=== PATIENT | female | born 1985 | race Caucasian/White ===

== ENCOUNTER 2016-12-06 12:59 | Emergency (ER) | payer SELFPAY ==
--- NOTE | 2016-12-06 13:17 | EDM.PDOC ---
ED HPI GENERAL MEDICAL PROBLEM - General Chief Complaint: Behavioral/Psych Stated Complaint: ANXIETY ATTACK Time Seen by Provider: 12/06/16 13:00 Source of Information: Reports: Patient History Limitations: Reports: No Limitations - History of Present Illness INITIAL COMMENTS - FREE TEXT/NARRATIVE: History of present illness: []Patient moved here from [place] recently and has been out of her occasions for one week. Not contact her primary care physician established locally. She states she is feeling her anxiety increasing. She is normally treated with Xanax half a milligram 3 times a day and she has a history of fibromyalgia and gets 120 tablets of tramadol a month and is also requesting this medication. Review of systems: As per history of present illness and below otherwise all systems reviewed and negative. Past medical history: As per history of present illness and as reviewed below otherwise noncontributory. Surgical history: As per history of present illness and as reviewed below otherwise noncontributory. Social history: No reported history of drug or alcohol abuse. Family history: As per history of present illness and as reviewed below otherwise noncontributory. Physical exam: General: Well developed, well nourished in NAD HEENT: Atraumatic, normocephalic, pupils reactive, negative for conjunctival pallor or scleral icterus, mucous membranes moist, throat clear, neck supple, nontender, trachea midline. Lungs: Clear to auscultation, breath sounds equal bilaterally, chest nontender. Heart: S1S2, regular, negative for clicks, rubs, or JVD. Abdomen: Soft, nondistended, nontender. Negative for masses or hepatosplenomegaly. Negative for costovertebral tenderness. Pelvis: Stable nontender. Genitourinary: Deferred. Rectal: Deferred. Extremities: Atraumatic, negative for cords or calf pain. Neurovascular unremarkable. Neuro: Awake, alert, oriented. Cranial nerves II through XII unremarkable. Cerebellum unremarkable. Motor and sensory unremarkable throughout. Exam nonfocal. Diagnostics: [] Therapeutics: [] Impression: []Med refill for Xanax 0.5 mg 3 times a day #12 and tramadol 50 mg 1 tablet 3 times a day #12 tablets with no refills Plan: []Follow-up with primary care physician next week for further medication refills. Definitive disposition and diagnosis as appropriate pending reevaluation and review of above. Generalized Pain Score (Numeric/FACES): 7 - Related Data Allergies Allergy/AdvReac Type Severity Reaction Status Date / Time Sulfa (Sulfonamide Allergy Swelling Verified 12/06/16 13:15 Antibiotics) Home Meds: Home Meds ALPRAZolam [Alprazolam] 0.5 mg PO TID PRN #12 tablet 12/06/16 [Rx] traMADol [Ultram] 50 mg PO Q8H PRN #12 tablet 12/06/16 [Rx] ED ROS GENERAL - Review of Systems Review Of Systems: See Below (see history of present illness) ED EXAM, GENERAL - Physical Exam Exam: See Below (See history of present illness) Course - Vital Signs Last Recorded V/S: Last Vital Signs Temp 36.7 C 12/06/16 13:10 Pulse 108 H 12/06/16 13:10 Resp 12 12/06/16 13:10 BP 137/77 12/06/16 13:10 Pulse Ox 98 12/06/16 13:10 Departure - Departure Time of Disposition: 13:29 Disposition: Home, Self-Care 01 Condition: Good Clinical Impression: Medication refill - Discharge Information Prescriptions: ALPRAZolam [Alprazolam] 0.5 mg PO TID PRN #12 tablet PRN Reason: Anxiety traMADol [Ultram] 50 mg PO Q8H PRN #12 tablet PRN Reason: Pain Referrals: PCP,None [Primary Care Provider] - Forms: ED Department Discharge Additional Instructions: The following information is given to patients seen in the emergency department who are being discharged to home. This information is to outline your options for follow-up care. We provide all patients seen in our emergency department with a follow-up referral. The need for follow-up, as well as the timing and circumstances, are variable depending upon the specifics of your emergency department visit. If you don't have a primary care physician on staff, we will provide you with a referral. We always advise you to contact your personal physician following an emergency department visit to inform them of the circumstance of the visit and for follow-up with them and/or the need for any referrals to a consulting specialist. The emergency department will also refer you to a specialist when appropriate. This referral assures that you have the opportunity for follow-up care with a specialist. All of these measure are taken in an effort to provide you with optimal care, which includes your follow-up. Under all circumstances we always encourage you to contact your private physician who remains a resource for coordinating your care. When calling for follow-up care, please make the office aware that this follow-up is from your recent emergency room visit. If for any reason you are refused follow-up, please contact the [facility] Emergency Department at and asked to speak to the emergency department charge nurse. Alprazolam 0.5 mg 3 times a day as needed 12 tablets without refills and tramadol 50 mg 1 tablet 3 times a day as needed tablets without refills filled one time. Patient is to follow-up in clinic in become established primary care physician for further refills [facility] [address] [place] [id number]
[2016-12-06 13:31] VITALS: BP 137/77
== END 2016-12-06 13:39 | disposition home or self-care (01) ==
LOC: MERGE 12:59 → MW.ED 12:59
DX: Z76.0 Encounter for issue of repeat prescription (principal); Z88.2 Allergy status to sulfonamides
CPT/HCPCS: 99282

== ENCOUNTER 2017-01-06 11:51 | Emergency (ER) | payer SELFPAY ==
[2017-01-06] MEDS ORDERED: Sodium Chloride 0.9% 2.5 ML Syringe FLUSH PRN (11:59)
[2017-01-06] MEDS ORDERED: LORazepam 2 MG/ML MDV IVPUSH ONE (11:59)
[2017-01-06] MEDS ORDERED: Sodium Chloride 0.9% 1,000 ML IV ONE (11:59)
[2017-01-06] MEDS ORDERED: Sodium Chloride 0.9% 10 ML Syringe FLUSH PRN (11:59)
[2017-01-06 12:03] VITALS: BP 160/98
--- NOTE | 2017-01-06 12:06 | EDM.PDOC ---
ED HPI GENERAL MEDICAL PROBLEM - General Chief Complaint: Chest Pain Stated Complaint: CHEST PAIN Time Seen by Provider: 01/06/17 11:53 Source of Information: Reports: Patient History Limitations: Reports: No Limitations - History of Present Illness INITIAL COMMENTS - FREE TEXT/NARRATIVE: History of present illness: []Patient take Clonopin chronically for anxiety but ran out of week ago. Yesterday she started feeling anxious with a lump or "dry spot" in her throat, chest pain, neck pain and palpitations. Patient states that this dry spot aches her tongue stick to the referring mouth and makes food difficult to swallow. Review of systems: As per history of present illness and below otherwise all systems reviewed and negative. Past medical history: As per history of present illness and as reviewed below otherwise noncontributory. Surgical history: As per history of present illness and as reviewed below otherwise noncontributory. Social history: No reported history of drug or alcohol abuse. Family history: As per history of present illness and as reviewed below otherwise noncontributory. Physical exam: General: Well developed, well nourished in NAD HEENT: Atraumatic, normocephalic, pupils reactive, negative for conjunctival pallor or scleral icterus, mucous membranes moist, throat clear no exudates or masses, neck supple, nontender, no adenopathy, trachea midline. No stridor Lungs: Clear to auscultation, breath sounds equal bilaterally, chest nontender. Heart: S1S2, regular, negative for clicks, rubs, or JVD. Abdomen: Soft, nondistended, nontender. Negative for masses or hepatosplenomegaly. Negative for costovertebral tenderness. Pelvis: Stable nontender. Genitourinary: Deferred. Rectal: Deferred. Extremities: Atraumatic, negative for cords or calf pain. Neurovascular unremarkable. Neuro: Awake, alert, oriented. Cranial nerves II through XII unremarkable. Cerebellum unremarkable. Motor and sensory unremarkable throughout. Exam nonfocal. Diagnostics: [] CBC chemistry, drug screen negative Therapeutics: []IV hydration and Ativan given with decrease of her heart rate and improvement in symptoms Impression: []Anxiety Plan: []Follow-up PMD return to ED if symptoms worsen Definitive disposition and diagnosis as appropriate pending reevaluation and review of above. 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), Other OB/BYN History: Cesearean section Musculoskeletal History: Reports: Fibromyalgia Psychiatric History: Reports: Anxiety - Infectious Disease History Infectious Disease History: Reports: Chicken Pox, Hepatitis C Social & Family History - Tobacco Use Smoking Status *Q: Current Every Day Smoker Years of Tobacco use: 8 Packs/Tins Daily: 1 - Caffeine Use Caffeine Use: Reports: None - Recreational Drug Use Recreational Drug Use: No ED ROS GENERAL - Review of Systems Review Of Systems: See Below (See history of present illness) ED EXAM, GENERAL - Physical Exam Exam: See Below (See history of present illness) Course - Vital Signs Last Recorded V/S: Last Vital Signs Temp 37.1 C 01/06/17 11:59 Pulse 128 H 01/06/17 11:59 Resp 16 01/06/17 11:59 BP 160/98 H 01/06/17 11:59 Pulse Ox 100 01/06/17 11:59 - Orders/Labs/Meds Orders: Active Orders 24 hr Category Date Time Status EKG 12 Lead [EKG Documentation Completion] [RC] STAT Care 01/06/17 12:41 Active Sodium Chloride 0.9% [Saline Flush] Med 01/06/17 11:59 Active 10 ml FLUSH ASDIRECTED PRN Sodium Chloride 0.9% [Saline Flush] Med 01/06/17 11:59 Active 2.5 ml FLUSH ASDIRECTED PRN Saline Lock Insert [OM.PC] Stat Oth 01/06/17 11:59 Ordered Medication Orders Sodium Chloride (Saline Flush) 10 ml FLUSH ASDIRECTED PRN PRN Reason: Keep Vein Open Last Admin: 01/06/17 12:11 Dose: 10 ml Sodium Chloride (Saline Flush) 2.5 ml FLUSH ASDIRECTED PRN PRN Reason: Keep Vein Open Last Admin: 01/06/17 12:14 Dose: 2.5 ml Labs: Laboratory Tests 01/06/17 01/06/17 01/06/17 Range/Units 12:10 12:10 12:24 WBC 7.65 (4.0-11.0) K/uL RBC 4.57 (4.30-5.90) M/uL Hgb 12.7 (12.0-16.0) g/dL Hct 38.5 (36.0-46.0) % MCV 84.2 (80.0-98.0) fL MCH 27.8 (27.0-32.0) pg MCHC 33.0 (31.0-37.0) g/dL RDW Std Deviation 46.5 (28.0-62.0) fl RDW Coeff of Pepito 15 (11.0-15.0) % Plt Count 306 (150-400) K/uL MPV 10.70 (7.40-12.00) fL Neut % (Auto) 56.2 (48.0-80.0) % Lymph % (Auto) 36.7 (16.0-40.0) % Burnet % (Auto) 6.0 (0.0-15.0) % Eos % (Auto) 0.7 (0.0-7.0) % Baso % (Auto) 0.4 (0.0-1.5) % Neut # (Auto) 4.3 (1.4-5.7) K/uL Lymph # (Auto) 2.8 H (0.6-2.4) K/uL Burnet # (Auto) 0.5 (0.0-0.8) K/uL Eos # (Auto) 0.1 (0.0-0.7) K/uL Baso # (Auto) 0.0 (0.0-0.1) K/uL Nucleated RBC % 0.0 /100WBC Nucleated RBCs # 0 K/uL Sodium 138 (136-146) mmol/L Potassium 3.7 (3.5-5.1) mmol/L Chloride 109 (98-110) mmol/L Carbon Dioxide 20 L (21-31) mmol/L BUN 16 (6.0-23.0) mg/dL Creatinine 0.9 (0.6-1.5) mg/dL Est Cr Clr Drug Dosing 88.07 mL/min Estimated GFR (MDRD) > 60.0 ml/min Glucose 106 (60-110) mg/dL Calcium 9.2 (8.8-10.8) mg/dL Total Bilirubin 0.5 (0.1-1.5) mg/dL AST 11 (5-40) IU/L ALT 8 (8-54) IU/L Alkaline Phosphatase 67 (40-150) Total Protein 7.7 (6.0-8.0) g/dL Albumin 4.5 (3.5-5.0) g/dL Globulin 3.2 (2.0-3.5) g/dL Albumin/Globulin Ratio 1.4 (1.3-2.8) Urine HCG, Qual NEGATIVE (NEGATIVE) Urine Opiates Screen (NEGATIVE) Ur Oxycodone Screen (NEGATIVE) Urine Methadone Screen (NEGATIVE) Ur Barbiturates Screen (NEGATIVE) Ur Phencyclidine Scrn (NEGATIVE) Ur Amphetamine Screen (NEGATIVE) U Methamphetamines Scrn (NEGATIVE) U Benzodiazepines Scrn (NEGATIVE) U Cocaine Metab Screen (NEGATIVE) U Marijuana (THC) Screen (NEGATIVE) 01/06/17 Range/Units 12:24 WBC (4.0-11.0) K/uL RBC (4.30-5.90) M/uL Hgb (12.0-16.0) g/dL Hct (36.0-46.0) % MCV (80.0-98.0) fL MCH (27.0-32.0) pg MCHC (31.0-37.0) g/dL RDW Std Deviation (28.0-62.0) fl RDW Coeff of Pepito (11.0-15.0) % Plt Count (150-400) K/uL MPV (7.40-12.00) fL Neut % (Auto) (48.0-80.0) % Lymph % (Auto) (16.0-40.0) % Burnet % (Auto) (0.0-15.0) % Eos % (Auto) (0.0-7.0) % Baso % (Auto) (0.0-1.5) % Neut # (Auto) (1.4-5.7) K/uL Lymph # (Auto) (0.6-2.4) K/uL Burnet # (Auto) (0.0-0.8) K/uL Eos # (Auto) (0.0-0.7) K/uL Baso # (Auto) (0.0-0.1) K/uL Nucleated RBC % /100WBC Nucleated RBCs # K/uL Sodium (136-146) mmol/L Potassium (3.5-5.1) mmol/L Chloride (98-110) mmol/L Carbon Dioxide (21-31) mmol/L BUN (6.0-23.0) mg/dL Creatinine (0.6-1.5) mg/dL Est Cr Clr Drug Dosing mL/min Estimated GFR (MDRD) ml/min Glucose (60-110) mg/dL Calcium (8.8-10.8) mg/dL Total Bilirubin (0.1-1.5) mg/dL AST (5-40) IU/L ALT (8-54) IU/L Alkaline Phosphatase (40-150) Total Protein (6.0-8.0) g/dL Albumin (3.5-5.0) g/dL Globulin (2.0-3.5) g/dL Albumin/Globulin Ratio (1.3-2.8) Urine HCG, Qual (NEGATIVE) Urine Opiates Screen NEGATIVE (NEGATIVE) Ur Oxycodone Screen NEGATIVE (NEGATIVE) Urine Methadone Screen NEGATIVE (NEGATIVE) Ur Barbiturates Screen NEGATIVE (NEGATIVE) Ur Phencyclidine Scrn NEGATIVE (NEGATIVE) Ur Amphetamine Screen NEGATIVE (NEGATIVE) U Methamphetamines Scrn NEGATIVE (NEGATIVE) U Benzodiazepines Scrn NEGATIVE (NEGATIVE) U Cocaine Metab Screen NEGATIVE (NEGATIVE) U Marijuana (THC) Screen NEGATIVE (NEGATIVE) Meds: Medications Generic Name Dose Route Start Last Admin Trade Name Freq PRN Reason Stop Dose Admin Sodium Chloride 10 ml 01/06/17 11:59 01/06/17 12:11 Saline Flush FLUSH 10 ml ASDIRECTED PRN Administration Keep Vein Open Sodium Chloride 2.5 ml 01/06/17 11:59 01/06/17 12:14 Saline Flush FLUSH 2.5 ml ASDIRECTED PRN Administration Keep Vein Open Discontinued Medications Generic Name Dose Route Start Last Admin Trade Name Freq PRN Reason Stop Dose Admin Sodium Chloride 1,000 mls @ 999 mls/hr 01/06/17 11:59 01/06/17 12:11 Normal Saline IV 01/06/17 12:59 999 mls/hr .Bolus ONE Administration Lorazepam 1 mg 01/06/17 11:59 01/06/17 12:11 Ativan IVPUSH 01/06/17 12:00 1 mg ONETIME ONE Administration Departure - Departure Time of Disposition: 13:17 Disposition: Home, Self-Care 01 Condition: Good Clinical Impression: Anxiety - Discharge Information Referrals: PCP,None [Primary Care Provider] - Forms: ED Department Discharge Additional Instructions: The following information is given to patients seen in the emergency department who are being discharged to home. This information is to outline your options for follow-up care. We provide all patients seen in our emergency department with a follow-up referral. The need for follow-up, as well as the timing and circumstances, are variable depending upon the specifics of your emergency department visit. If you don't have a primary care physician on staff, we will provide you with a referral. We always advise you to contact your personal physician following an emergency department visit to inform them of the circumstance of the visit and for follow-up with them and/or the need for any referrals to a consulting specialist. The emergency department will also refer you to a specialist when appropriate. This referral assures that you have the opportunity for follow-up care with a specialist. All of these measure are taken in an effort to provide you with optimal care, which includes your follow-up. Under all circumstances we always encourage you to contact your private physician who remains a resource for coordinating your care. When calling for follow-up care, please make the office aware that this follow-up is from your recent emergency room visit. If for any reason you are refused follow-up, please contact the [facility] Emergency Department at and asked to speak to the emergency department charge nurse. Follow-up with PMD [facility] [address] [place] [id number] - My Orders Last 24 Hours: My Active Orders 01/06/17 11:59 Sodium Chloride 0.9% [Saline Flush] 10 ml FLUSH ASDIRECTED PRN Sodium Chloride 0.9% [Saline Flush] 2.5 ml FLUSH ASDIRECTED PRN Saline Lock Insert [OM.PC] Stat 01/06/17 12:41 EKG 12 Lead [EKG Documentation Completion] [RC] STAT - Assessment/Plan Last 24 Hours: My Active Orders 01/06/17 11:59 Sodium Chloride 0.9% [Saline Flush] 10 ml FLUSH ASDIRECTED PRN Sodium Chloride 0.9% [Saline Flush] 2.5 ml FLUSH ASDIRECTED PRN Saline Lock Insert [OM.PC] Stat 01/06/17 12:41 EKG 12 Lead [EKG Documentation Completion] [RC] STAT
[2017-01-06 13:09] LABS: CHLORIDE,CL 109 mmol/L (98-110); SODIUM,NA 138 mmol/L (136-146)
== END 2017-01-06 13:44 | disposition home or self-care (01) ==
LOC: MW.ED 11:51
DX: F41.9 Anxiety disorder, unspecified (principal); F17.210 Nicotine dependence, cigarettes, uncomplicated; Z88.2 Allergy status to sulfonamides
CPT/HCPCS: 36415; 80053; 80305; 81025; 85025; 93005; 96361; 96374; 99285; J2060; J7040; 99283

== ENCOUNTER 2017-01-07 20:41 | Emergency (ER) | payer SELFPAY ==
[2017-01-07 20:55] VITALS: BP 134/77
--- NOTE | 2017-01-07 21:15 | EDM.PDOC ---
ED HPI GENERAL MEDICAL PROBLEM - General Chief Complaint: ENT Problem Stated Complaint: PAIN/ITCHY THROAT Time Seen by Provider: 01/07/17 20:44 Source of Information: Reports: Patient History Limitations: Reports: No Limitations - History of Present Illness INITIAL COMMENTS - FREE TEXT/NARRATIVE: Presents reporting a one month history of sore throat intermittent cough and bronchial burning. Denies fever, ear fullness, runny nose, breathing problems. She states that she did come to the ER last week but according to the patient she was told "they didn't have the equipment here to look at her throat". She was treated for anxiety. Otherwise she has not seen a provider. She currently complains of anxiety as well and states she has been under a lot of stress. She smokes 1-1-1/2 packs of cigarettes a day. 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 Musculoskeletal History: Reports: Fibromyalgia Psychiatric History: Reports: Anxiety - Infectious Disease History Infectious Disease History: Reports: Chicken Pox, Hepatitis C - Past Surgical History HEENT Surgical History: Reports: Adenoidectomy, Tonsillectomy Female Surgical History: Reports: Section Musculoskeletal Surgical History: Reports: None Social & Family History - Family History Family Medical History: Noncontributory - Tobacco Use Smoking Status *Q: Current Every Day Smoker Years of Tobacco use: 17 Packs/Tins Daily: 1 - Caffeine Use Caffeine Use: Reports: None - Recreational Drug Use Recreational Drug Use: No Drug Use in Last 12 Months: No ED ROS ENT - Review of Systems Review Of Systems: ROS reveals no pertinent complaints other than HPI. ED EXAM, ENT - Physical Exam Exam: See Below General Appearance: Alert, No Apparent Distress Ears: Normal External Exam, Normal TMs Nose: Normal Inspection Mouth/Throat: Normal Inspection, Pharyngeal Erythema (Mild). No: Tonsillar Exudates, Tonsillar Swelling Head: Atraumatic, Normocephalic Neck: Normal Inspection. No: Lymphadenopathy (L), Lymphadenopathy (R) Respiratory/Chest: No Respiratory Distress, Lungs Clear, Normal Breath Sounds Cardiovascular: Normal Peripheral Pulses, Regular Rate, Rhythm, No Murmur, Tachycardia Back: Normal Inspection Extremities: Normal Inspection Neurological: Alert, Oriented Psychiatric: Anxious Skin: Warm, Dry, Intact, Normal Color, No Rash Lymphatic: No Adenopathy Course - Vital Signs Last Recorded V/S: Last Vital Signs Temp 36.6 C 01/07/17 20:51 Pulse 123 H 01/07/17 20:51 Resp 18 01/07/17 20:51 BP 134/77 01/07/17 20:51 Pulse Ox 96 01/07/17 20:51 Departure - Departure Time of Disposition: 21:13 Disposition: Home, Self-Care 01 Condition: Good Clinical Impression: Bronchitis - Discharge Information Referrals: PCP,None [Primary Care Provider] - [facility] [Outside] [facility] [Outside] Additional Instructions: 1. Prednisone daily for next five days. Take your first 2 pills tonight. 2. Cheratussin with Codeine for cough--no driving or operating machinery 3. Please follow-up with primary care to address your anxiety 4. Stop smoking
== END 2017-01-07 21:23 | disposition home or self-care (01) ==
LOC: MW.ED 20:41
DX: J40 Bronchitis, not specified as acute or chronic (principal); F17.210 Nicotine dependence, cigarettes, uncomplicated; Z88.2 Allergy status to sulfonamides; Z79.899 Other long term (current) drug therapy
CPT/HCPCS: 99282

== ENCOUNTER 2017-03-14 13:00 | Emergency (ER) | payer OTHER ==
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
[2017-03-14] MEDS ORDERED: cefTRIAXone 2 GM in Premix Bag 1 BAG IV ONE (13:33)
[2017-03-14] MEDS ORDERED: Sodium Chloride 0.9% 1,000 ML IV ONE (13:33)
[2017-03-14 15:15] VITALS: BP 152/86
== END 2017-03-14 15:10 | disposition home or self-care (01) ==
LOC: MW.ED 13:00
DX: T74.11XA Adult physical abuse, confirmed, initial encounter (principal); S00.11XA Contusion of right eyelid and periocular area, initial encounter; L03.114 Cellulitis of left upper limb; L03.113 Cellulitis of right upper limb; L03.116 Cellulitis of left lower limb; L03.115 Cellulitis of right lower limb; F41.9 Anxiety disorder, unspecified; F17.210 Nicotine dependence, cigarettes, uncomplicated; Z79.899 Other long term (current) drug therapy; Z88.2 Allergy status to sulfonamides; Y07.01 Husband, perpetrator of maltreatment and neglect
CPT/HCPCS: 96365; 99282; J0696; J7040

== ENCOUNTER 2017-05-09 10:46 | Emergency (ER) | payer SELFPAY ==
[2017-05-09] MEDS ORDERED: Sodium Chloride 0.9% 10 ML Syringe FLUSH PRN (10:49)
[2017-05-09] MEDS ORDERED: Sodium Chloride 0.9% 2.5 ML Syringe FLUSH PRN (10:49)
[2017-05-09 12:55] LABS: CHLORIDE,CL 105 mmol/L (98-110); SODIUM,NA 135 mmol/L (136-146)
--- NOTE | 2017-05-09 13:00 | CR ---
EXAMINATION: Two-view chest (PA and Lateral views). HISTORY: Shortness of breath. FINDINGS: The trachea is midline. The cardiomediastinal silhouette is within normal limits. No pulmonary infilt rates, effusions or pneumothorax. Small calcified and ossified nodule projecting over the left suprah ilar region, likely a granuloma given the patient's age. Osseous structures appear unremarkable. IMPRESSION: No acute cardiopulmonary process.
--- NOTE | 2017-05-09 13:17 | EDM.PDOC ---
<Laura Kaye - Last Filed: 05/09/17 13:33> ED HPI GENERAL MEDICAL PROBLEM - General Chief Complaint: General Stated Complaint: COUGH Time Seen by Provider: 05/09/17 11:17 Source of Information: Reports: Patient History Limitations: Reports: No Limitations - History of Present Illness INITIAL COMMENTS - FREE TEXT/NARRATIVE: HISTORY AND PHYSICAL: []31-year-old female presenting with a cough for the last several months and quit smoking 2 weeks ago History of Present Illness: []Patient complains that her kidney hurt She states she is Dehydrated needs antibiotics Review of Systems: As per history of present illness and below otherwise all systems reviewed and negative. Past medical history: As per history of present illness and as reviewed below otherwise noncontributory. Surgical history: As per history of present illness and as reviewed below otherwise noncontributory. Social history: No reported history of drug or alcohol abuse. Family history: As per history of present illness and as reviewed below otherwise noncontributory. Physical exam: Alert and oriented female answering questions appropriately is not short of breath with examination. Skin is warm and dry. Flat affect good eye contact. HEENT: Atraumatic, normocehpalic, pupils reactive, negative for conjunctival pallor or scleral icterus, mucous membranes moist, throat clear, neck supple, nontender, trachea midline. Lungs: Crackles to right lower base on auscultation, breath sounds equal bilaterally, chest non tender. Heart: S1S2, regular, negative for clicks, rubs, or JVD. Abdomen: Soft, nondistended, nontender. Negative for masses or hepatossplenmegaly. Negative for costovertebral tenderness. Pelvis: Stable nontender. Genitourinary: Deferred. Rectal: Deferred Extremities: Atraumatic, negative for cords or calf pain. Neurovascular unremarkable. Neuro: Awake, alert, oriented. Cranial nerves II through XII unremarkable. Cerebellum unremarkable. Motor and sensory unremarkable throughout. Exam nonfocal. Discussed the viral results on her laboratory values Chest x-ray is negative for pneumonia/discussed granuloma present Urinalysis is negative for any infection. Patient continues to request antibiotic therapy which will not be beneficial to treating her virus. Patient is requesting a another provider see her for evaluation/ admission was kindly seen by Dr. Cabrera and reassured. Diagnostics: [CBC CMP UA] Therapeutics: [] Impression: [Viral syndrome] Plan: [] Discharge to home Medrol dose pack Miguel Silvestre Definitive disposition and diagnosis as appropriate pending reevaluation and review of above. Onset: Gradual Duration: Week(s):, Chronic Location: Reports: Chest Quality: Reports: Ache Severity: Moderate Improves with: Reports: None Worsens with: Reports: None Right Flank Pain Score (Numeric/FACES): 10 - Related Data Allergies Allergy/AdvReac Type Severity Reaction Status Date / Time Sulfa (Sulfonamide Allergy Hives Verified 05/09/17 11:14 Antibiotics) Home Meds: Home Meds traMADol [Ultram] 50 mg PO Q8H PRN #12 tablet 12/06/16 [Rx] clonazePAM [Klonopin] 0.5 mg PO BID 01/06/17 [History] Benzonatate [Tessalon Perle] 100 mg PO Q6HR #30 capsule 05/09/17 [Rx] Estazolam 05/09/17 [History] methylPREDNISolone [Medrol] 4 mg PO ASDIRECTED #1 dosepk 05/09/17 [Rx] Past Medical History - Past Health History Medical/Surgical History: Denies Medical/Surgical History HEENT History: Reports: None Genitourinary History: Reports: None 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 Musculoskeletal History: Reports: Fibromyalgia Psychiatric History: Reports: Addiction, Anxiety - Infectious Disease History Infectious Disease History: Reports: Chicken Pox, Hepatitis C - Past Surgical History HEENT Surgical History: Reports: Adenoidectomy, Tonsillectomy Female Surgical History: Reports: Section Musculoskeletal Surgical History: Reports: None Social & Family History - Family History Family Medical History: Noncontributory - Tobacco Use Smoking Status *Q: Current Every Day Smoker Years of Tobacco use: 20 Packs/Tins Daily: 2 - Caffeine Use Caffeine Use: Reports: None - Recreational Drug Use Recreational Drug Use: No Drug Use in Last 12 Months: No ED ROS GENERAL - Review of Systems Review Of Systems: ROS reveals no pertinent complaints other than HPI. ED EXAM, GENERAL - Physical Exam Exam: See Below (See dictation) Course - Vital Signs Last Recorded V/S: Last Vital Signs Temp 97.2 F 05/09/17 11:12 Pulse 54 L 02/23/18 11:12 Resp 18 05/09/17 11:12 BP 108/83 05/09/17 11:12 Pulse Ox 100 05/09/17 11:12 - Orders/Labs/Meds Orders: Active Orders 24 hr Category Date Time Status CULTURE URINE [RM] Stat Lab 05/09/17 11:16 Received Sodium Chloride 0.9% [Saline Flush] Med 05/09/17 10:49 Active 10 ml FLUSH ASDIRECTED PRN Sodium Chloride 0.9% [Saline Flush] Med 05/09/17 10:49 Active 2.5 ml FLUSH ASDIRECTED PRN Saline Lock Insert [OM.PC] Stat Oth 05/09/17 10:49 Ordered Medication Orders Sodium Chloride (Saline Flush) 10 ml FLUSH ASDIRECTED PRN PRN Reason: Keep Vein Open Sodium Chloride (Saline Flush) 2.5 ml FLUSH ASDIRECTED PRN PRN Reason: Keep Vein Open Labs: Laboratory Tests 05/09/17 05/09/17 05/09/17 Range/Units 11:16 11:58 11:58 WBC 5.05 (4.0-11.0) K/uL RBC 4.30 (4.30-5.90) M/uL Hgb 12.2 (12.0-16.0) g/dL Hct 37.2 (36.0-46.0) % MCV 86.5 (80.0-98.0) fL MCH 28.4 (27.0-32.0) pg MCHC 32.8 (31.0-37.0) g/dL RDW Std Deviation 45.6 (28.0-62.0) fl RDW Coeff of Pepito 15 (11.0-15.0) % Plt Count 210 (150-400) K/uL MPV 10.70 (7.40-12.00) fL Neut % (Auto) 40.6 L (48.0-80.0) % Lymph % (Auto) 42.8 H (16.0-40.0) % Dubois % (Auto) 7.5 (0.0-15.0) % Eos % (Auto) 8.7 H (0.0-7.0) % Baso % (Auto) 0.4 (0.0-1.5) % Neut # (Auto) 2.1 (1.4-5.7) K/uL Lymph # (Auto) 2.2 (0.6-2.4) K/uL Dubois # (Auto) 0.4 (0.0-0.8) K/uL Eos # (Auto) 0.4 (0.0-0.7) K/uL Baso # (Auto) 0.0 (0.0-0.1) K/uL Nucleated RBC % 0.0 /100WBC Nucleated RBCs # 0 K/uL Sodium 135 L (136-146) mmol/L Potassium 4.4 (3.5-5.1) mmol/L Chloride 105 (98-110) mmol/L Carbon Dioxide 21 (21-31) mmol/L BUN 15 (6.0-23.0) mg/dL Creatinine 0.7 (0.6-1.5) mg/dL Est Cr Clr Drug Dosing 121.69 mL/min Estimated GFR (MDRD) > 60.0 ml/min Glucose 75 (60-110) mg/dL Calcium 9.2 (8.8-10.8) mg/dL Total Bilirubin 0.2 (0.1-1.5) mg/dL AST 16 (5-40) IU/L ALT 14 (8-54) IU/L Alkaline Phosphatase 49 (40-150) Total Protein 6.2 (6.0-8.0) g/dL Albumin 3.9 (3.5-5.0) g/dL Globulin 2.3 (2.0-3.5) g/dL Albumin/Globulin Ratio 1.7 (1.3-2.8) Urine Color YELLOW Urine Appearance CLEAR Urine pH 6.0 (5.0-8.0) Ur Specific Powell <= 1.005 (1.001-1.035) Urine Protein NEGATIVE (NEGATIVE) mg/dL Urine Glucose (UA) NEGATIVE (NEGATIVE) mg/dL Urine Ketones NEGATIVE (NEGATIVE) mg/dL Urine Occult Blood NEGATIVE (NEGATIVE) Urine Nitrite NEGATIVE (NEGATIVE) Urine Bilirubin NEGATIVE (NEGATIVE) Urine Urobilinogen 0.2 (<2.0) EU/dL Ur Leukocyte Esterase NEGATIVE (NEGATIVE) Urine RBC 0-1 (0-2/HPF) Urine WBC 0-1 (0-5/HPF) Ur Epithelial Cells RARE (NONE-FEW) Urine Bacteria RARE (NEGATIVE) Meds: Medications Generic Name Dose Route Start Last Admin Trade Name Minhq PRN Reason Stop Dose Admin Sodium Chloride 10 ml 05/09/17 10:49 Saline Flush FLUSH ASDIRECTED PRN Keep Vein Open Sodium Chloride 2.5 ml 05/09/17 10:49 Saline Flush FLUSH ASDIRECTED PRN Keep Vein Open Departure - Departure Time of Disposition: 13:33 Disposition: Home, Self-Care 01 Condition: Good Clinical Impression: Viral syndrome - Discharge Information Prescriptions: Benzonatate [Tessalon Perle] 100 mg PO Q6HR #30 capsule methylPREDNISolone [Medrol] 4 mg PO ASDIRECTED #1 dosepk 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 This information is to outline your options for follow-up care. We provide all patients seen in our emergency department with a follow-up referral. The need for follow-up, as well as the timing and circumstances, are variable depending upon the specifics of your emergency department visit. If you don't have a primary care physician on staff, we will provide you with a referral. We always advise you to contact your personal physician following an emergency department visit to inform them of the circumstance of the visit and for follow-up with them and/or the need for any referrals to a consulting specialist. The emergency department will also refer you to a specialist when appropriate. This referral assures that you have the opportunity for followup care with a specialist. All of these measure are taken in an effort to provide you with optimal care, which includes your followup. Under all circumstances we always encourage you to contact your private physician who remains a resource for coordinating your care. When calling for followup care, please make the office aware that this follow-up is from your recent emergency room visit. If for any reason you are refused follow-up, please contact the [facility] emergency department at and asked to speak to the emergency department charge nurse. Your prescriptions have been sent to [facility] Copies of lab work have been given to you Follow up with your primary care provider <Lopez Sena - Last Filed: 05/09/17 13:39> ED HPI GENERAL MEDICAL PROBLEM - History of Present Illness INITIAL COMMENTS - FREE TEXT/NARRATIVE: I've seen and examined the patient and agree with the above Patient with long smoking history with persistent cough for one month after viral illness, she has not smoked in 2 weeks due to chronic cough HEENT grossly within normal limits Chest clear at apices height of bases equal expansion no excess or muscles or pursed lip breathing nontender chest wall CV regular rate and rhythm no murmur Abdomen benign Extremities full range of motion strength 5 out of 5 no edema PSYCHIATRIC NP alert nonfocal Lab as below Chest 2 views Assessment Chronic bronchitis Plan Patient somewhat mal content Z-Nick 250 mg no refill HFA laura has provided Tessalon Perles as well as Medrol dose pack Continue with smoking cessation
[2017-05-09 19:01] VITALS: BP 117/81
== END 2017-05-09 13:46 | disposition home or self-care (01) ==
LOC: MW.ED 10:46
DX: B34.9 Viral infection, unspecified (principal); F41.9 Anxiety disorder, unspecified; F17.210 Nicotine dependence, cigarettes, uncomplicated; Z88.2 Allergy status to sulfonamides
CPT/HCPCS: 36415; 71046; 71046-26; 80053; 81001; 85025; 87086; 99283

== ENCOUNTER 2017-07-24 03:17 | Observation (INO) | payer MEDICAID ==
[2017-07-24] MEDS ORDERED: Sodium Chloride 0.9% 10 ML Syringe FLUSH PRN (03:33)
[2017-07-24] MEDS ORDERED: Albuterol/Ipratropium 3.0-0.5 MG/3 ML Neb Soln NEB ONE (03:33)
[2017-07-24] MEDS ORDERED: Sodium Chloride 0.9% 1,000 ML IV ONE ×2 (03:33→05:34)
[2017-07-24] MEDS ORDERED: Ketorolac 30 MG/ML SDV IVPUSH ONE (03:33)
[2017-07-24] MEDS ORDERED: Sodium Chloride 0.9% 2.5 ML Syringe FLUSH PRN (03:33)
[2017-07-24] MEDS ORDERED: methylPREDNISolone Sodium Succinate 125 MG/2 ML SDV IVPUSH ONE (03:33)
--- NOTE | 2017-07-24 03:42 | EDM.PDOC ---
ED HPI GENERAL MEDICAL PROBLEM - General Chief Complaint: Respiratory Problem Stated Complaint: AMBULANCE Time Seen by Provider: 07/24/17 03:20 - History of Present Illness INITIAL COMMENTS - FREE TEXT/NARRATIVE: HISTORY AND PHYSICAL: History of present illness: The patient is a 32-year-old female who is a long-standing history of tobacco use and is currently smoking 1 pack a day but denies drug use or pulmonary history and presents with a recurrent episode of bronchitic cough occasionally productive of phlegm and discomfort with taking deep breaths that has been ongoing for the last several weeks but worse the last 1 week. According to the patient she has been coughing on and off for several months but it seems to have been worse the last one months. She says she has noted episodes of similar symptoms several times since moving to [place] and was seen here in our emergency department the end of April for similar. On that ER visit she complained of cough times several months. She was worked up and evaluated and discharged home and told to follow-up. She says she has seen her provider in the clinic but no further testing has been ordered and is unclear if that is actually happened. The patient denies any trauma and has no abdominal pain vomiting or diarrhea and denies as she has had a tubal ligation. The patient has not had a fever and has not had a runny nose or sore throat. She says that she has been eating and drinking normally. Please see below for more information Review of systems: As per history of present illness and below otherwise all systems reviewed and negative. Past medical history: As per history of present illness and as reviewed below otherwise noncontributory. Surgical history: As per history of present illness and as reviewed below otherwise noncontributory. Social history: No reported history of drug or alcohol abuse. Family history: As per history of present illness and as reviewed below otherwise noncontributory. Physical exam: General: Well-developed thin female who is nontoxic and has a harsh loose cough on my evaluation. Vital signs are noted by me. HEENT: Atraumatic, normocephalic, pupils reactive, negative for conjunctival pallor or scleral icterus, mucous membranes tacky, throat clear, neck supple, nontender, trachea midline. Lungs: Coarse breath sounds bilaterally with some rhonchi and occasional wheezing but no stridor or work of breathing,, breath sounds equal bilaterally, chest nontender. Heart: S1S2, regular rhythm and tachycardic rate of my evaluation, negative for clicks, rubs, or JVD. I cannot appreciate any discrete murmur on auscultation. Abdomen: Soft, nondistended, nontender. Negative for masses or hepatosplenomegaly. NABS Pelvis: Stable nontender. Genitourinary: Deferred. Rectal: Deferred. Extremities: Atraumatic, negative for cords or calf pain. Neurovascular unremarkable. No pedal edema or leg asymmetry Neuro: Awake, alert, oriented. Cranial nerves II through XII unremarkable. Cerebellum unremarkable. Motor and sensory unremarkable throughout. Exam nonfocal. Diagnostics: EKG chest x-ray CBC CMP lactic acid d-dimer troponin blood cultures 2 CTA of the chest was ordered due to positive d-dimer Therapeutics: IV O2 monitor IV fluids duo neb Solu-Medrol potassium orally Initially on my evaluation the patient denied drug use but after obtaining her drug screen I did discuss those results with her. She says she has been smoking drugs and she has a long-standing history of IV drug abuse but has not used on any regular basis but admits that she did use heroin approximately a week ago. She says she has not been able to refill her prescription for medications and she was having pain so she relapsed and used IV drugs. She is not very forthcoming with how often she is smoking drugs . She denies any lightheadedness dizziness palpitations or fevers at home and reiterates that she mostly came in for the persistent cough and the pleuritic chest pain. I do not appreciate any discrete murmur on my evaluation and she is currently finishing her first liter of fluids and still is tachycardic. If this persists I 'll plan on giving her second liter of IV fluids and will do blood cultures 2 and plan antibiotic therapy. 0550: Case was discussed with the hospitalist Dr. Mccullough who agrees to observation admission. I will give the patient antibiotics here in the ED, Rocephin and vancomycin and Zithromax. Testing results were discussed with the patient and care plan for admission was also discussed and she is agreeable. Impression: Multi focal pneumonia Definitive disposition and diagnosis as appropriate pending reevaluation and review of above. 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 OB/BYN History: Cesearean section Musculoskeletal History: Reports: Fibromyalgia Psychiatric History: Reports: Addiction, Anxiety - Infectious Disease History Infectious Disease History: Reports: Chicken Pox, Hepatitis C - Past Surgical History HEENT Surgical History: Reports: Adenoidectomy, Tonsillectomy Female Surgical History: Reports: Section Musculoskeletal Surgical History: Reports: None Social & Family History - Family History Family Medical History: Noncontributory - Caffeine Use Caffeine Use: Reports: None ED ROS GENERAL - Review of Systems Review Of Systems: ROS reveals no pertinent complaints other than HPI. ED EXAM, GENERAL - Physical Exam Exam: See Below (See dictation) Course - Vital Signs Last Recorded V/S: Last Vital Signs Temp 37.3 C 07/24/17 03:32 Pulse 113 H 07/24/17 05:31 Resp 16 07/24/17 05:31 BP 124/80 07/24/17 05:31 Pulse Ox 98 07/24/17 05:31 - Orders/Labs/Meds Orders: Active Orders 24 hr Category Date Time Status Patient Status [ADT] Stat ADT 07/24/17 05:53 Ordered Cardiac Monitoring [RC] . DIRECTED Care 07/24/17 03:32 Active Oxygen Therapy, ED [RC] ASDIRECTED Care 07/24/17 03:32 Active Pulse Oximetry [RC] ASDIRECTED Care 07/24/17 03:32 Active RT Aerosol Therapy [RC] ASDIRECTED Care 07/24/17 03:33 Active Ang Chest [CT] Stat Exams 07/24/17 04:14 Taken Chest 2V [CR] Stat Exams 07/24/17 03:33 Taken CULTURE BLOOD [BC] Stat Lab 07/24/17 05:35 Received CULTURE BLOOD [BC] Stat Lab 07/24/17 05:44 Received DRUG SCREEN, URINE [URCHEM] Stat Lab 07/24/17 03:35 Ordered UA W/MICROSCOPIC [URIN] Stat Lab 07/24/17 03:35 Ordered Azithromycin [Zithromax] Med 07/24/17 05:53 Once 500 mg PO ONETIME ONE Sodium Chloride 0.9% [Normal Saline] 1,000 ml Med 07/24/17 05:34 Active IV STAT Sodium Chloride 0.9% [Saline Flush] Med 07/24/17 03:33 Active 10 ml FLUSH ASDIRECTED PRN Sodium Chloride 0.9% [Saline Flush] Med 07/24/17 03:33 Active 2.5 ml FLUSH ASDIRECTED PRN Vancomycin [Vancocin] 1 gm Med 07/24/17 05:53 Ordered Sodium Chloride 0.9% [Normal Saline] 250 ml IV ONETIME cefTRIAXone [Rocephin in Dextrose,Iso-Osm 1 GM/50 ML] 1 Med 07/24/17 05:53 Ordered gm Premix Bag 1 bag IV ONETIME Blood Culture x2 Reflex Set [OM.PC] Stat Oth 07/24/17 05:13 Ordered Saline Lock Insert [OM.PC] Stat Oth 07/24/17 03:32 Ordered Medication Orders Sodium Chloride (Normal Saline) 1,000 mls @ 999 mls/hr IV STAT ONE Stop: 07/24/17 06:34 Last Admin: 07/24/17 05:39 Dose: 999 mls/hr Sodium Chloride (Saline Flush) 10 ml FLUSH ASDIRECTED PRN PRN Reason: Keep Vein Open Last Admin: 07/24/17 03:42 Dose: 10 ml Sodium Chloride (Saline Flush) 2.5 ml FLUSH ASDIRECTED PRN PRN Reason: Keep Vein Open Last Admin: 07/24/17 03:42 Dose: 2.5 ml Labs: Laboratory Tests 07/24/17 07/24/17 07/24/17 Range/Units 03:25 03:25 03:25 WBC 16.23 H (4.0-11.0) K/uL RBC 4.14 L (4.30-5.90) M/uL Hgb 11.8 L (12.0-16.0) g/dL Hct 35.2 L (36.0-46.0) % MCV 85.0 (80.0-98.0) fL MCH 28.5 (27.0-32.0) pg MCHC 33.5 (31.0-37.0) g/dL RDW Std Deviation 41.6 (28.0-62.0) fl RDW Coeff of Pepito 14 (11.0-15.0) % Plt Count 298 (150-400) K/uL MPV 10.40 (7.40-12.00) fL Neut % (Auto) 81.5 H (48.0-80.0) % Lymph % (Auto) 12.1 L (16.0-40.0) % Boone % (Auto) 5.9 (0.0-15.0) % Eos % (Auto) 0.4 (0.0-7.0) % Baso % (Auto) 0.1 (0.0-1.5) % Neut # (Auto) 13.2 H (1.4-5.7) K/uL Lymph # (Auto) 2.0 (0.6-2.4) K/uL Boone # (Auto) 1.0 H (0.0-0.8) K/uL Eos # (Auto) 0.1 (0.0-0.7) K/uL Baso # (Auto) 0.0 (0.0-0.1) K/uL Nucleated RBC % 0.0 /100WBC Nucleated RBCs # 0 K/uL D-Dimer, Quantitative 0.87 H (0.0-0.52) mg/LFEU Lactate (0.20-2.00) mmol/L Sodium 139 (136-145) mmol/L Potassium 3.2 L (3.5-5.1) mmol/L Chloride 101 (98-107) mmol/L Carbon Dioxide 28.1 (21.0-32.0) mmol/L BUN 7 (7.0-18.0) mg/dL Creatinine 0.8 (0.6-1.0) mg/dL Est Cr Clr Drug Dosing 103.38 mL/min Estimated GFR (MDRD) > 60.0 ml/min Glucose 126 H (74-106) mg/dL Calcium 8.8 (8.5-10.1) mg/dL Total Bilirubin 0.2 (0.2-1.0) mg/dL AST 18 (15-37) IU/L ALT 23 (14-63) IU/L Alkaline Phosphatase 102 (46-116) U/L Troponin I < 0.050 (0.000-0.056) ng/mL Total Protein 7.2 (6.4-8.2) g/dL Albumin 2.9 L (3.4-5.0) g/dL Globulin 4.3 H (2.0-3.5) g/dL Albumin/Globulin Ratio 0.7 L (1.3-2.8) Urine Color Urine Appearance Urine pH (5.0-8.0) Ur Specific Barnes (1.001-1.035) Urine Protein (NEGATIVE) mg/dL Urine Glucose (UA) (NEGATIVE) mg/dL Urine Ketones (NEGATIVE) mg/dL Urine Occult Blood (NEGATIVE) Urine Nitrite (NEGATIVE) Urine Bilirubin (NEGATIVE) Urine Urobilinogen (<2.0) EU/dL Ur Leukocyte Esterase (NEGATIVE) Urine RBC (0-2/HPF) Urine WBC (0-5/HPF) Ur Epithelial Cells (NONE-FEW) Urine Bacteria (NEGATIVE) Urine Opiates Screen (NEGATIVE) Ur Oxycodone Screen (NEGATIVE) Urine Methadone Screen (NEGATIVE) Ur Barbiturates Screen (NEGATIVE) Ur Phencyclidine Scrn (NEGATIVE) Ur Amphetamine Screen (NEGATIVE) U Methamphetamines Scrn (NEGATIVE) U Benzodiazepines Scrn (NEGATIVE) U Cocaine Metab Screen (NEGATIVE) U Marijuana (THC) Screen (NEGATIVE) 07/24/17 07/24/17 07/24/17 Range/Units 03:25 03:35 03:35 WBC (4.0-11.0) K/uL RBC (4.30-5.90) M/uL Hgb (12.0-16.0) g/dL Hct (36.0-46.0) % MCV (80.0-98.0) fL MCH (27.0-32.0) pg MCHC (31.0-37.0) g/dL RDW Std Deviation (28.0-62.0) fl RDW Coeff of Pepito (11.0-15.0) % Plt Count (150-400) K/uL MPV (7.40-12.00) fL Neut % (Auto) (48.0-80.0) % Lymph % (Auto) (16.0-40.0) % Boone % (Auto) (0.0-15.0) % Eos % (Auto) (0.0-7.0) % Baso % (Auto) (0.0-1.5) % Neut # (Auto) (1.4-5.7) K/uL Lymph # (Auto) (0.6-2.4) K/uL Boone # (Auto) (0.0-0.8) K/uL Eos # (Auto) (0.0-0.7) K/uL Baso # (Auto) (0.0-0.1) K/uL Nucleated RBC % /100WBC Nucleated RBCs # K/uL D-Dimer, Quantitative (0.0-0.52) mg/LFEU Lactate 1.2 (0.20-2.00) mmol/L Sodium (136-145) mmol/L Potassium (3.5-5.1) mmol/L Chloride (98-107) mmol/L Carbon Dioxide (21.0-32.0) mmol/L BUN (7.0-18.0) mg/dL Creatinine (0.6-1.0) mg/dL Est Cr Clr Drug Dosing mL/min Estimated GFR (MDRD) ml/min Glucose (74-106) mg/dL Calcium (8.5-10.1) mg/dL Total Bilirubin (0.2-1.0) mg/dL AST (15-37) IU/L ALT (14-63) IU/L Alkaline Phosphatase (46-116) U/L Troponin I (0.000-0.056) ng/mL Total Protein (6.4-8.2) g/dL Albumin (3.4-5.0) g/dL Globulin (2.0-3.5) g/dL Albumin/Globulin Ratio (1.3-2.8) Urine Color YELLOW Urine Appearance CLEAR Urine pH 7.0 (5.0-8.0) Ur Specific Barnes 1.015 (1.001-1.035) Urine Protein NEGATIVE (NEGATIVE) mg/dL Urine Glucose (UA) NEGATIVE (NEGATIVE) mg/dL Urine Ketones NEGATIVE (NEGATIVE) mg/dL Urine Occult Blood NEGATIVE (NEGATIVE) Urine Nitrite NEGATIVE (NEGATIVE) Urine Bilirubin NEGATIVE (NEGATIVE) Urine Urobilinogen 0.2 (<2.0) EU/dL Ur Leukocyte Esterase NEGATIVE (NEGATIVE) Urine RBC 0-1 (0-2/HPF) Urine WBC 0-1 (0-5/HPF) Ur Epithelial Cells RARE (NONE-FEW) Urine Bacteria RARE (NEGATIVE) Urine Opiates Screen POSITIVE (NEGATIVE) Ur Oxycodone Screen NEGATIVE (NEGATIVE) Urine Methadone Screen NEGATIVE (NEGATIVE) Ur Barbiturates Screen NEGATIVE (NEGATIVE) Ur Phencyclidine Scrn NEGATIVE (NEGATIVE) Ur Amphetamine Screen NEGATIVE (NEGATIVE) U Methamphetamines Scrn POSITIVE (NEGATIVE) U Benzodiazepines Scrn POSITIVE (NEGATIVE) U Cocaine Metab Screen NEGATIVE (NEGATIVE) U Marijuana (THC) Screen NEGATIVE (NEGATIVE) Meds: Medications Generic Name Dose Route Start Last Admin Trade Name Freq PRN Reason Stop Dose Admin Sodium Chloride 1,000 mls @ 999 mls/hr 07/24/17 05:34 07/24/17 05:39 Normal Saline IV 07/24/17 06:34 999 mls/hr STAT ONE Administration Sodium Chloride 10 ml 07/24/17 03:33 07/24/17 03:42 Saline Flush FLUSH 10 ml ASDIRECTED PRN Administration Keep Vein Open Sodium Chloride 2.5 ml 07/24/17 03:33 07/24/17 03:42 Saline Flush FLUSH 2.5 ml ASDIRECTED PRN Administration Keep Vein Open Discontinued Medications Generic Name Dose Route Start Last Admin Trade Name Freq PRN Reason Stop Dose Admin Albuterol/Ipratropium 3 ml 07/24/17 03:33 07/24/17 03:42 Duoneb 3.0-0.5 Mg/3 Ml NEB 07/24/17 03:34 3 ml ONETIME ONE Administration Sodium Chloride 1,000 mls @ 999 mls/hr 07/24/17 03:33 07/24/17 04:58 Normal Saline IV 07/24/17 04:33 999 mls/hr STAT ONE Infusion Iopamidol 100 ml 07/24/17 05:08 07/24/17 05:09 Isovue-370 (76%) IVPUSH 07/24/17 05:09 70 ml ONETIME STA Administration Ketorolac Tromethamine 30 mg 07/24/17 03:33 07/24/17 03:42 Toradol IVPUSH 07/24/17 03:34 30 mg ONETIME ONE Administration Methylprednisolone Sodium Succinate 125 mg 07/24/17 03:33 07/24/17 03:42 Solu-Medrol IVPUSH 07/24/17 03:34 125 mg ONETIME ONE Administration Potassium Chloride 40 meq 07/24/17 05:13 07/24/17 05:19 Klor-Con M20 PO 07/24/17 05:14 40 meq ONETIME ONE Administration Departure - Departure Time of Disposition: 05:55 Disposition: Refer to Observation Condition: Good Clinical Impression: Multifocal pneumonia - Discharge Information Referrals: PCP,None [Primary Care Provider] - Forms: ED Department Discharge - My Orders Last 24 Hours: My Active Orders 07/24/17 03:32 Cardiac Monitoring [RC] . DIRECTED Oxygen Therapy, ED [RC] ASDIRECTED Pulse Oximetry [RC] ASDIRECTED Saline Lock Insert [OM.PC] Stat 07/24/17 03:33 RT Aerosol Therapy [RC] ASDIRECTED Chest 2V [CR] Stat Sodium Chloride 0.9% [Saline Flush] 10 ml FLUSH ASDIRECTED PRN Sodium Chloride 0.9% [Saline Flush] 2.5 ml FLUSH ASDIRECTED PRN 07/24/17 03:35 DRUG SCREEN, URINE [URCHEM] Stat UA W/MICROSCOPIC [URIN] Stat 07/24/17 04:14 Ang Chest [CT] Stat 07/24/17 05:13 Blood Culture x2 Reflex Set [OM.PC] Stat 07/24/17 05:34 Sodium Chloride 0.9% [Normal Saline] 1,000 ml IV STAT 07/24/17 05:35 CULTURE BLOOD [BC] Stat 07/24/17 05:44 CULTURE BLOOD [BC] Stat 07/24/17 05:53 Patient Status [ADT] Stat Azithromycin [Zithromax] 500 mg PO ONETIME ONE Vancomycin [Vancocin] 1 gm Sodium Chloride 0.9% [Normal Saline] 250 ml IV ONETIME cefTRIAXone [Rocephin in Dextrose,Iso-Osm 1 GM/50 ML] 1 gm Premix Bag 1 bag IV ONETIME - Assessment/Plan Last 24 Hours: My Active Orders 07/24/17 03:32 Cardiac Monitoring [RC] . DIRECTED Oxygen Therapy, ED [RC] ASDIRECTED Pulse Oximetry [RC] ASDIRECTED Saline Lock Insert [OM.PC] Stat 07/24/17 03:33 RT Aerosol Therapy [RC] ASDIRECTED Chest 2V [CR] Stat Sodium Chloride 0.9% [Saline Flush] 10 ml FLUSH ASDIRECTED PRN Sodium Chloride 0.9% [Saline Flush] 2.5 ml FLUSH ASDIRECTED PRN 07/24/17 03:35 DRUG SCREEN, URINE [URCHEM] Stat UA W/MICROSCOPIC [URIN] Stat 07/24/17 04:14 Ang Chest [CT] Stat 07/24/17 05:13 Blood Culture x2 Reflex Set [OM.PC] Stat 07/24/17 05:34 Sodium Chloride 0.9% [Normal Saline] 1,000 ml IV STAT 07/24/17 05:35 CULTURE BLOOD [BC] Stat 07/24/17 05:44 CULTURE BLOOD [BC] Stat 07/24/17 05:53 Patient Status [ADT] Stat Azithromycin [Zithromax] 500 mg PO ONETIME ONE Vancomycin [Vancocin] 1 gm Sodium Chloride 0.9% [Normal Saline] 250 ml IV ONETIME cefTRIAXone [Rocephin in Dextrose,Iso-Osm 1 GM/50 ML] 1 gm Premix Bag 1 bag IV ONETIME
[2017-07-24 04:07] LABS: CHLORIDE,CL 101 mmol/L (98-107)
[2017-07-24 04:15] LABS: SODIUM,NA 139 mmol/L (136-145)
[2017-07-24] MEDS ORDERED: Iopamidol 755 Mg/ML 100 ML Bottle IVPUSH STA (05:08)
[2017-07-24] MEDS ORDERED: Potassium Chloride 20 MEQ Tab.ER PO ONE (05:13)
[2017-07-24] MEDS ORDERED: Azithromycin 250 MG Tab PO ONE (05:53)
[2017-07-24] MEDS ORDERED: cefTRIAXone 1 GM in Premix Bag 1 BAG IV ONE (05:53)
[2017-07-24] MEDS ORDERED: Vancomycin 1 GM AdvVial ONE (05:56)
[2017-07-24] MEDS ORDERED: cefTRIAXone 1,000 MG in Dextrose 5% in Water 50 ML IV ONE ×2 (06:15)
[2017-07-24] MEDS ORDERED: Ondansetron 4 MG/2 ML SDV IVPUSH PRN (06:45)
[2017-07-24] MEDS ORDERED: Sodium Chloride 0.9% 1,000 ML IV SCH (06:45)
[2017-07-24] MEDS ORDERED: Acetaminophen 325 MG Tab PO PRN (06:46)
[2017-07-24] MEDS ORDERED: Albuterol/Ipratropium 3.0-0.5 MG/3 ML Neb Soln NEB PRN (07:15)
[2017-07-24] MEDS ORDERED: traMADol 50 MG Tab PO PRN (09:05)
[2017-07-24] MEDS ORDERED: ClonazePAM 0.5 MG Tab PO SCH (09:15)
--- NOTE | 2017-07-24 09:17 | PCM.HP ---
H&P History of Present Illness - General Date of Service: 07/24/17 Admit Problem/Dx: Admission Diagnosis/Problem Admission Diagnosis/Problem Pneumonia Source of Information: Patient History Limitations: Reports: No Limitations - History of Present Illness Initial Comments - Free Text/Narative: 32 year old fm with history of Anxiety, tobacco abuse, polysubstance abuse and IVDA admitted for CAP. She presented to the ED complaining of chronic cough and sob ongoing for several months. She was seen for this multiple times in the past but not underlying abnormalities were ever found. She denies any previous diagnosis of COPD but does admit to smoking PPD for 20 years. She states this past week her symptoms had gotten worst. She felt warm and had occasional night sweats but denies taking her temperature at home. She states she has felt much better since admission. She is tolerating PO intake and denies any nausea or vomiting. She is urinating without difficulty and is ambulatory. She admits to using smoking methamphetamine and using IV heroin but she states she uses it occasionally and denies addiction. Her last time using IV heroin was 2 weeks ago. At admission in the ED her labs revealed leukocytosis and cxr was consistent with pneumonia. She was also tachycardic and found to have elevated D-dimer therefore CT chest done which was negative for PE. She was treated with Rocephin , Azithromycin, Vacnomycin and Duonebs. She did also receive dose of Solumedrol 125 mg. L chest Pain Score (Numeric/FACES): 10 - Related Data Allergies/Adverse Reactions: Allergies Allergy/AdvReac Type Severity Reaction Status Date / Time Sulfa (Sulfonamide Allergy Hives Verified 07/24/17 03:34 Antibiotics) Home Medications: Home Meds traMADol [Ultram] 50 mg PO Q8H PRN #12 tablet 12/06/16 [Rx] clonazePAM [Klonopin] 0.5 mg PO BID 01/06/17 [History] Estazolam 0.5 mg PO ASDIRECTED PRN 05/09/17 [History] Past Medical History - Past Health History Medical/Surgical History: Denies Medical/Surgical History HEENT History: Reports: None Genitourinary History: Reports: None HOME CARE COORDINATOR History: Reports: Other OB/BYN History: Cesearean section Musculoskeletal History: Reports: RA Psychiatric History: Reports: Addiction, Anxiety Other Endocrine/Metabolic History: Patient reports "overactive thyroid", also states, "nobody is doing anything about it". Dermatologic History: Reports: Cellulitis - Infectious Disease History Infectious Disease History: Reports: Chicken Pox, Hepatitis C - Past Surgical History HEENT Surgical History: Reports: Adenoidectomy, Tonsillectomy Female Surgical History: Reports: Section Musculoskeletal Surgical History: Reports: None Social & Family History - Family History Family Medical History: Noncontributory - Tobacco Use Smoking Status *Q: Current Every Day Smoker Years of Tobacco use: 20 Packs/Tins Daily: 1 - Caffeine Use Caffeine Use: Reports: Soda, Tea - Alcohol Use Date of Last Drink: 07/23/17 Time of Last Drink: 20:00 - Recreational Drug Use Recreational Drug Use: Yes Drug Use in Last 12 Months: Yes Other Recreational Drug Type: last use- "day before yesterday" Recreational Drug Use Frequency: Monthly Recreational Drug Last Use: two days ago H&P Review of Systems - Review of Systems: Review Of Systems: See Below General: Reports: No Symptoms HEENT: Reports: No Symptoms Pulmonary: Reports: Cough Cardiovascular: Reports: No Symptoms Gastrointestinal: Reports: No Symptoms Genitourinary: Reports: No Symptoms Musculoskeletal: Reports: No Symptoms Skin: Reports: No Symptoms Psychiatric: Reports: No Symptoms Neurological: Reports: No Symptoms Hematologic/Lymphatic: Reports: No Symptoms Immunologic: Reports: No Symptoms Exam - Exam Exam: See Below - Vital Signs Vital Signs: Last Vital Signs Temp 36.8 C 07/24/17 06:25 Pulse 112 H 07/24/17 06:25 Resp 18 07/24/17 06:25 BP 135/90 07/24/17 06:25 Pulse Ox 93 L 07/24/17 06:25 Weight: 66.7 kg - Exam General: Alert, Oriented, Cooperative HEENT: Conjunctiva Clear, EACs Clear, EOMI, Hearing Intact, Mucosa Moist & [place] , Nares Patent, Normal Nasal Septum, Posterior Pharynx Clear, Pupils Equal, Pupils Reactive, TMs Clear Neck: Supple Lungs: Normal Respiratory Effort, Crackles, Wheezing Cardiovascular: Regular Rhythm, Tachycardia GI/Abdominal Exam: Normal Bowel Sounds, Soft, Non-Tender, No Distention (Female) Exam: Normal External Exam Back Exam: Normal Inspection Extremities: Normal Inspection, Normal Range of Motion, Non-Tender, Normal Capillary Refill Skin: Warm, Dry, Intact Neuro Extensive - Mental Status: Alert, Oriented x3 - Patient Data Lab Results Last 24 hrs: Laboratory Results - last 24 hr 07/24/17 07/24/17 07/24/17 Range/Units 03:25 03:25 03:25 WBC 16.23 H (4.0-11.0) K/uL RBC 4.14 L (4.30-5.90) M/uL Hgb 11.8 L (12.0-16.0) g/dL Hct 35.2 L (36.0-46.0) % MCV 85.0 (80.0-98.0) fL MCH 28.5 (27.0-32.0) pg MCHC 33.5 (31.0-37.0) g/dL RDW Std Deviation 41.6 (28.0-62.0) fl RDW Coeff of Pepito 14 (11.0-15.0) % Plt Count 298 (150-400) K/uL MPV 10.40 (7.40-12.00) fL Neut % (Auto) 81.5 H (48.0-80.0) % Lymph % (Auto) 12.1 L (16.0-40.0) % [place] % (Auto) 5.9 (0.0-15.0) % Eos % (Auto) 0.4 (0.0-7.0) % Baso % (Auto) 0.1 (0.0-1.5) % Neut # (Auto) 13.2 H (1.4-5.7) K/uL Lymph # (Auto) 2.0 (0.6-2.4) K/uL [place] # (Auto) 1.0 H (0.0-0.8) K/uL Eos # (Auto) 0.1 (0.0-0.7) K/uL Baso # (Auto) 0.0 (0.0-0.1) K/uL Nucleated RBC % 0.0 /100WBC Nucleated RBCs # 0 K/uL D-Dimer, Quantitative 0.87 H (0.0-0.52) mg/LFEU Lactate (0.20-2.00) mmol/L Sodium 139 (136-145) mmol/L Potassium 3.2 L (3.5-5.1) mmol/L Chloride 101 (98-107) mmol/L Carbon Dioxide 28.1 (21.0-32.0) mmol/L BUN 7 (7.0-18.0) mg/dL Creatinine 0.8 (0.6-1.0) mg/dL Est Cr Clr Drug Dosing 103.38 mL/min Estimated GFR (MDRD) > 60.0 ml/min Glucose 126 H (74-106) mg/dL Calcium 8.8 (8.5-10.1) mg/dL Total Bilirubin 0.2 (0.2-1.0) mg/dL AST 18 (15-37) IU/L ALT 23 (14-63) IU/L Alkaline Phosphatase 102 (46-116) U/L Troponin I < 0.050 (0.000-0.056) ng/mL Total Protein 7.2 (6.4-8.2) g/dL Albumin 2.9 L (3.4-5.0) g/dL Globulin 4.3 H (2.0-3.5) g/dL Albumin/Globulin Ratio 0.7 L (1.3-2.8) Urine Color Urine Appearance Urine pH (5.0-8.0) Ur Specific [place] (1.001-1.035) Urine Protein (NEGATIVE) mg/dL Urine Glucose (UA) (NEGATIVE) mg/dL Urine Ketones (NEGATIVE) mg/dL Urine Occult Blood (NEGATIVE) Urine Nitrite (NEGATIVE) Urine Bilirubin (NEGATIVE) Urine Urobilinogen (<2.0) EU/dL Ur Leukocyte Esterase (NEGATIVE) Urine RBC (0-2/HPF) Urine WBC (0-5/HPF) Ur Epithelial Cells (NONE-FEW) Urine Bacteria (NEGATIVE) Urine Opiates Screen (NEGATIVE) Ur Oxycodone Screen (NEGATIVE) Urine Methadone Screen (NEGATIVE) Ur Barbiturates Screen (NEGATIVE) Ur Phencyclidine Scrn (NEGATIVE) Ur Amphetamine Screen (NEGATIVE) U Methamphetamines Scrn (NEGATIVE) U Benzodiazepines Scrn (NEGATIVE) U Cocaine Metab Screen (NEGATIVE) U Marijuana (THC) Screen (NEGATIVE) 07/24/17 07/24/17 07/24/17 Range/Units 03:25 03:35 03:35 WBC (4.0-11.0) K/uL RBC (4.30-5.90) M/uL Hgb (12.0-16.0) g/dL Hct (36.0-46.0) % MCV (80.0-98.0) fL MCH (27.0-32.0) pg MCHC (31.0-37.0) g/dL RDW Std Deviation (28.0-62.0) fl RDW Coeff of Pepito (11.0-15.0) % Plt Count (150-400) K/uL MPV (7.40-12.00) fL Neut % (Auto) (48.0-80.0) % Lymph % (Auto) (16.0-40.0) % [place] % (Auto) (0.0-15.0) % Eos % (Auto) (0.0-7.0) % Baso % (Auto) (0.0-1.5) % Neut # (Auto) (1.4-5.7) K/uL Lymph # (Auto) (0.6-2.4) K/uL [place] # (Auto) (0.0-0.8) K/uL Eos # (Auto) (0.0-0.7) K/uL Baso # (Auto) (0.0-0.1) K/uL Nucleated RBC % /100WBC Nucleated RBCs # K/uL D-Dimer, Quantitative (0.0-0.52) mg/LFEU Lactate 1.2 (0.20-2.00) mmol/L Sodium (136-145) mmol/L Potassium (3.5-5.1) mmol/L Chloride (98-107) mmol/L Carbon Dioxide (21.0-32.0) mmol/L BUN (7.0-18.0) mg/dL Creatinine (0.6-1.0) mg/dL Est Cr Clr Drug Dosing mL/min Estimated GFR (MDRD) ml/min Glucose (74-106) mg/dL Calcium (8.5-10.1) mg/dL Total Bilirubin (0.2-1.0) mg/dL AST (15-37) IU/L ALT (14-63) IU/L Alkaline Phosphatase (46-116) U/L Troponin I (0.000-0.056) ng/mL Total Protein (6.4-8.2) g/dL Albumin (3.4-5.0) g/dL Globulin (2.0-3.5) g/dL Albumin/Globulin Ratio (1.3-2.8) Urine Color YELLOW Urine Appearance CLEAR Urine pH 7.0 (5.0-8.0) Ur Specific [place] 1.015 (1.001-1.035) Urine Protein NEGATIVE (NEGATIVE) mg/dL Urine Glucose (UA) NEGATIVE (NEGATIVE) mg/dL Urine Ketones NEGATIVE (NEGATIVE) mg/dL Urine Occult Blood NEGATIVE (NEGATIVE) Urine Nitrite NEGATIVE (NEGATIVE) Urine Bilirubin NEGATIVE (NEGATIVE) Urine Urobilinogen 0.2 (<2.0) EU/dL Ur Leukocyte Esterase NEGATIVE (NEGATIVE) Urine RBC 0-1 (0-2/HPF) Urine WBC 0-1 (0-5/HPF) Ur Epithelial Cells RARE (NONE-FEW) Urine Bacteria RARE (NEGATIVE) Urine Opiates Screen POSITIVE (NEGATIVE) Ur Oxycodone Screen NEGATIVE (NEGATIVE) Urine Methadone Screen NEGATIVE (NEGATIVE) Ur Barbiturates Screen NEGATIVE (NEGATIVE) Ur Phencyclidine Scrn NEGATIVE (NEGATIVE) Ur Amphetamine Screen NEGATIVE (NEGATIVE) U Methamphetamines Scrn POSITIVE (NEGATIVE) U Benzodiazepines Scrn POSITIVE (NEGATIVE) U Cocaine Metab Screen NEGATIVE (NEGATIVE) U Marijuana (THC) Screen NEGATIVE (NEGATIVE) Result Diagrams: 07/24/17 03:25 07/24/17 03:25 Problem List Initiated/Reviewed/Updated: Yes Orders Last 24hrs: Active Orders 24 hr Category Date Time Status Patient Status [ADT] Stat ADT 07/24/17 05:53 Active Cardiac Monitoring [RC] . DIRECTED Care 07/24/17 03:32 Active Intake and Output [RC] Q12HR Care 07/24/17 06:47 Active Oxygen Therapy, ED [RC] ASDIRECTED Care 07/24/17 03:32 Active Pulse Oximetry [RC] ASDIRECTED Care 07/24/17 03:32 Active RT Aerosol Therapy [RC] ASDIRECTED Care 07/24/17 03:33 Active RT Aerosol Therapy [RC] ASDIRECTED Care 07/24/17 07:16 Active Up ad Marcelina [RC] ASDIRECTED Care 07/24/17 06:47 Active Vital Signs [RC] Q4HR Care 07/24/17 06:47 Active Regular Diet [DIET] Diet 07/24/17 Breakfast Active Ang Chest [CT] Stat Exams 07/24/17 04:14 Taken Chest 2V [CR] Stat Exams 07/24/17 03:33 Taken BMP [BASIC METABOLIC PANEL,BMP] [CHEM] Routine Lab 07/25/17 05:00 Ordered CBC WITH AUTO DIFF [HEME] Routine Lab 07/25/17 05:00 Ordered CULTURE BLOOD [BC] Stat Lab 07/24/17 05:35 Received CULTURE BLOOD [BC] Stat Lab 07/24/17 05:44 Received DRUG SCREEN, URINE [URCHEM] Stat Lab 07/24/17 03:35 Ordered UA W/MICROSCOPIC [URIN] Stat Lab 07/24/17 03:35 Ordered Acetaminophen [Tylenol] Med 07/24/17 06:46 Active 650 mg PO Q4H PRN Albuterol/Ipratropium [DuoNeb 3.0-0.5 MG/3 ML] Med 07/24/17 07:15 Active 3 ml NEB Q6HRRT PRN Azithromycin [Zithromax] 500 mg Med 07/25/17 05:00 Active Sodium Chloride 0.9% [Normal Saline] 250 ml IV Q24H ClonazePAM [KlonoPIN] Med 07/24/17 09:15 Ordered 0.5 mg PO BID Ondansetron [Zofran] Med 07/24/17 06:45 Active 4 mg IVPUSH Q4H PRN Sodium Chloride 0.9% [Normal Saline] 1,000 ml Med 07/24/17 06:45 Active IV ASDIRECTED Sodium Chloride 0.9% [Saline Flush] Med 07/24/17 03:33 Active 10 ml FLUSH ASDIRECTED PRN Sodium Chloride 0.9% [Saline Flush] Med 07/24/17 03:33 Active 2.5 ml FLUSH ASDIRECTED PRN cefTRIAXone [Rocephin in Dextrose,Iso-Osm 1 GM/50 ML] 1 Med 07/25/17 06:00 Active gm Premix Bag 1 bag IV Q24H traMADol [Ultram] Med 07/24/17 09:05 Ordered 50 mg PO Q8H PRN Blood Culture x2 Reflex Set [OM.PC] Stat Oth 07/24/17 05:13 Ordered Saline Lock Insert [OM.PC] Stat Oth 07/24/17 03:32 Ordered Medication Orders Acetaminophen (Tylenol) 650 mg PO Q4H PRN PRN Reason: pain Albuterol/Ipratropium (Duoneb 3.0-0.5 Mg/3 Ml) 3 ml NEB Q6HRRT PRN PRN Reason: Wheezing Clonazepam (Klonopin) 0.5 mg PO BID CHEMO Azithromycin 500 mg/ Sodium (Chloride) 250 mls @ 250 mls/hr IV Q24H CHEMO Ceftriaxone Sodium/Dextrose 1 (gm/ Premix) 50 mls @ 100 mls/hr IV Q24H CHEMO Sodium Chloride (Normal Saline) 1,000 mls @ 125 mls/hr IV ASDIRECTED CHEMO Ondansetron HCl (Zofran) 4 mg IVPUSH Q4H PRN PRN Reason: Nausea/Vomiting Sodium Chloride (Saline Flush) 10 ml FLUSH ASDIRECTED PRN PRN Reason: Keep Vein Open Last Admin: 07/24/17 03:42 Dose: 10 ml Sodium Chloride (Saline Flush) 2.5 ml FLUSH ASDIRECTED PRN PRN Reason: Keep Vein Open Last Admin: 07/24/17 03:42 Dose: 2.5 ml Tramadol HCl (Ultram) 50 mg PO Q8H PRN PRN Reason: Pain Assessment/Plan Comment:: #CAP -no fever, no hypoxia, tolerating po intake -CXR: Lingular and right lower lobe consolidations. Stable calcified granuloma within the left upper lobe. No sign of pleural effusion. No pneumothorax. Consistent with pneumonia -CT Chest: Mediastinum and [place] reveal Prominent mediastinal and hilar lymph nodes. Lungs reveal Multifocal consolidations throughout both lungs. no pleural effusion or pneumothorax. Consistent with multifocal pneumonia Plan: -admit to obs -continue Rocephin IV and Azithromycin PO -continue duonebs -f/u blood cultures obtained in ED #Leukocytosis -likely secondary to CAP -patient received Solumedrol 125 mg in ED therefore no further monitoring #Elevated D-Dimer #Tachycardia -CT done in ED was negative for PE -Tachycardia may be multifactoral secondary to CAP and history of Anxiety #PMH of Anxiety #Tachycardia -resume home Clonazepam #tobacco Abuse #Chronic Cough -20 pack year history -nicotine patch -recommend out-patient PFT in 4-6 weeks to r/o or establish diagnosis of COPD -smoking cessation counselling #Polysubstance Abuse #History of IVDA -no murmur on exam -blood cultures obtained in ED -counselled risks associated with substance abuse #Hypokalemia -replaced in ED -continue to monitor
[2017-07-24] MEDS ORDERED: Nicotine 21 MG/24 Hr Patch TRDERM SCH (09:30)
[2017-07-24 09:35] VITALS: BP 137/88
[2017-07-24] MEDS ORDERED: Albuterol 8 GM Inhaler INH SCH (10:45)
--- NOTE | 2017-07-24 17:48 | CT ---
EXAM DATE: 07/24/17 PATIENT'S AGE: 32 Patient: LUCITA ANSARI Facility: [place], [place] Site . Site : 1985 Study: CT Chest Angio [id number]/10/2018 5:09:43 AM Ordering Physician: Kody Ochoa Final Report: INDICATION: Pos D-dimer TECHNIQUE: CT chest pulmonary angiogram acquired with IV contrast COMPARISON: None FINDINGS: Cardiovascular structures: Normal vascular enhancement of the pulmonary arteries , no sign of pulmonary embolism. Heart size is normal. No sign of aneurysm or dissection in the thoracic aorta. Mediastinum and bever[place]: Prominent mediastinal and hilar lymph nodes.. Lungs: Multifocal consolidations throughout both lungs. no pleural effusion or pneumothorax. Chest wall and axilla: No mass or adenopathy. Bones: No significant findings. Upper abdomen: Unremarkable. Other: Note made of extravasated contrast within the medial aspect of the right upper arm. This was noted per anesthesiology technologist. IMPRESSION: 1. No evidence of pulmonary embolism. 2. Multifocal pneumonia. Dictated by Hector Gorman MD @ 07/24/2017 5:31:10 AM Dictated by: Hector Gorman MD @ 07/24/2017 05:38:42 (Electronic Signature) Report Signed by Proxy. [facility]
--- NOTE | 2017-07-24 17:48 | CR ---
EXAM DATE: 07/24/17 PATIENT'S AGE: 32 Patient: LUCITA ANSARI Facility: [place], [place] Site . Site : 1985 Study: XRay Chest [id number]/10/2018 4:16:32 AM Ordering Physician: Kody Ochoa Final Report: INDICATION: CP TECHNIQUE: Chest 2 views COMPARISON: May 09, 2017 FINDINGS: Cardiovascular and mediastinum: Heart size and vasculature are normal in caliber and appearance. Mediastinum is within normal limits. Lungs and pleural spaces: Lingular and right lower lobe consolidations. Stable calcified granuloma within the left upper lobe. No sign of pleural effusion. No pneumothorax. Bones and soft tissues: No significant findings. IMPRESSION: Multifocal pneumonia. Dictated by Hector Gorman MD @ 07/24/2017 4:19:52 AM Dictated by: Hector Gorman MD @ 07/24/2017 04:20:03 (Electronic Signature) Report Signed by Proxy. [facility]
[2017-07-25] MEDS ORDERED: Azithromycin 500 MG in Sodium Chloride 0.9% 250 ML IV SCH (05:00)
[2017-07-25] MEDS ORDERED: cefTRIAXone 1 GM in Sodium Chloride 0.9% 50 ML IV SCH (06:00)
[2017-07-25] MEDS ORDERED: cefTRIAXone 1 GM in Premix Bag 1 BAG IV SCH (06:00)
== END 2017-07-24 13:15 | disposition home or self-care (01) ==
LOC: MW.ED 03:17 → MW.MS 05:53
PROVIDERS: ADMIT Family Medicine; ATTEND Family Medicine
DX: J18.9 Pneumonia, unspecified organism (principal); F41.9 Anxiety disorder, unspecified; F17.210 Nicotine dependence, cigarettes, uncomplicated; R79.1 Abnormal coagulation profile; D72.829 Elevated white blood cell count, unspecified; F19.10 Other psychoactive substance abuse, uncomplicated; E87.6 Hypokalemia; Z88.2 Allergy status to sulfonamides; Z90.89 Acquired absence of other organs
CPT/HCPCS: 36415; 71046; 71275; 80053; 80305; 81001; 83605; 84484; 85025; 85379; 87040; 93005; 94640; 96361; 96374; 96375; 99285; A9270; J0696; J1885; J2930; J3370; J7040; J7050; J7060; Q9967; G0378